=== PATIENT | male | born 1995 | race African-American/Black ===

== ENCOUNTER 2016-09-27 21:04 | Emergency (ER) | payer BC, OTHER ==
[2016-09-27 21:12] VITALS: BP 133/67
--- NOTE | 2016-09-27 21:26 | PHYS DOC ---
Past Medical History Past Medical History: No Pertinent History Past Surgical History: Other Additional Past Surgical Histo: left wrist surgery Alcohol Use: None Drug Use: None Adult General Chief Complaint Chief Complaint: COUGH HPI HPI Patient is a 21 year old who presents emergency department stating that he feels like he has generalized body aches and discomfort with a fever as well as cough and congestion. He states that the signs and symptoms started last night. He has not taken anything for the symptoms. He does state that he's been having sick contact at work and at home. He denies having the influenza vaccination this year. Review of Systems Review of Systems Constitutional: fever Eyes: Denies change in visual acuity, redness, or eye pain [] HENT: nasal congestion denies sore throat [] Respiratory: cough occasional shortness of breath [] Cardiovascular: No additional information not addressed in HPI [] GI: Denies abdominal pain, nausea, vomiting, bloody stools or diarrhea [] : Denies dysuria or hematuria [] Musculoskeletal: Denies back pain or joint pain [] Integument: Denies rash or skin lesions [] Neurologic: Denies headache, focal weakness or sensory changes [] Current Medications Current Medications Current Medications Medications (Trade) Dose Ordered Sig/Naima Start Time Stop Time Status Last Admin Dose Admin Ibuprofen (Motrin) 800 mg 1X ONCE 09/27/16 21:30 09/27/16 21:31 DC 09/27/16 21:39 800 MG Allergies Allergies Allergies Coded Allergies Type Severity Reaction Last Updated Verified No Known Drug Allergies 06/29/15 No Physical Exam Physical Exam Constitutional: Well developed, well nourished, no acute distress, non-toxic appearance. [] HENT: Normocephalic, atraumatic, bilateral external ears normal, oropharynx moist, no oral exudates, nose normal. Bilateral tympanic membranes appear to be normal. Throat with erythematous no exudate noted. Eyes: PERRLA, EOMI, conjunctiva normal, no discharge. [] Neck: Normal range of motion, no tenderness, supple, no stridor. [] Cardiovascular:Heart rate regular rhythm, no murmur [] Lungs & Thorax: Bilateral breath sounds clear to auscultation [] Skin: Warm, dry, no erythema, no rash. [] Back: No tenderness Extremities: No tenderness, no cyanosis, no clubbing, ROM intact, no edema. [] Neurologic: Alert and oriented X 3, normal motor function, normal sensory function, no focal deficits noted. [] Psychologic: Affect normal, judgement normal, mood normal. [] Current Patient Data Vital Signs Vital Signs Date Time Temp Pulse Resp B/P Pulse Ox O2 Delivery O2 Flow Rate FiO2 09/27/16 22:05 99.0 99.0 09/27/16 21:12 86 22 96 Room Air Lab Values Laboratory Tests Test 09/27/16 21:20 Influenza Type A Antigen Positive (NEGATIVE) Influenza Type B Antigen Negative (NEGATIVE) EKG EKG [] Radiology/Procedures Radiology/Procedures [] Course & Med Decision Making Course & Med Decision Making Pertinent Labs and Imaging studies reviewed. (See chart for details) She was provided with ibuprofen here in the emergency department. Temperature has decreased. Patient's influenza A positive. He'll be provided with Tamiflu and discharged home with recommendations for plenty of fluids such as water and Gatorade or propel. Patient will also be encouraged to use Tylenol and ibuprofen. Signs symptoms to return back to emergency department as been provided. Patient be discharged home in stable condition. [] Dragon Disclaimer Dragon Disclaimer This electronic medical record was generated, in whole or in part, using a voice recognition dictation system. Departure Departure Impression: Primary Impression: Influenza A Disposition: 01 HOME, SELF-CARE Condition: STABLE Referrals: Bhavna ARITA MD (PCP) Patient Instructions: Influenza, Adult, [id number] Additional Instructions: Home to rest. Medications as prescribed. Tylenol and ibuprofen for fever chills or generalized body aches and discomfort. Drink plenty of fluids such as water or Gatorade or propel. Follow-up through primary care physician in the next 7-10 days. Return back to emergency department sign symptoms of become worse. Scripts Oseltamivir Phosphate (Tamiflu)75 Mg Capsule1 Cap PO BID #10 CAP Prov:JASMIN SMITH NP 09/27/16 JASMIN SMITH NP Sep 27, 2016 21:26
[2016-09-27] MEDS ORDERED: IBUPROFEN 800 MG TABLET. PO ONE (21:30)
[2016-09-27 21:51] LABS: OBC FLU VALID
[2016-09-27] MEDS ORDERED: OSEL75CA PO (22:09)
== END 2016-09-27 22:14 | disposition home or self-care (01) ==
LOC: ER 21:04
DX: J09.X2 Influenza due to identified novel influenza A virus with other respiratory manifestations (principal); M79.1 Myalgia
CPT/HCPCS: 87804; 99284

== ENCOUNTER 2018-05-26 16:51 | Emergency (ER) | payer BC ==
[~2018-05-26] VITALS: Ht 188 cm; Wt 133.8 kg
[~2018-05-26 16:51] MED LIST: OSEL75CA PO
[2018-05-26 16:55] VITALS: BP 153/91
[2018-05-26] MEDS ORDERED: IBUPROFEN 600 MG TABLET. PO ONE (17:30)
--- NOTE | 2018-05-26 18:04 | RAD ---
Indication:PT STATES BODY ACHES ALL OVER SINCE THIS MORNING. DENIES CP, COUGH TECHNIQUE:PA and lateral views of the chest COMPARISON: None FINDINGS: Heart is normal in size. There is mild prominence of bronchial markings. Without focal consolidation. No pneumothorax or pleural effusion. Visualized bony thorax is within normal limits. IMPRESSION: Findings suggests mild bronchitis in right clinical setting. Electronically signed by: Jasmeet Arambula DO (05/26/2018 6:01 PM) [facility]
[2018-05-26 18:07] LABS: INFLUENZA A PATIENT NEGATIVE (NEGATIVE); INFLUENZA B PATIENT NEGATIVE (NEGATIVE)
--- NOTE | 2018-05-26 18:59 | PHYS DOC ---
Past Medical History Past Medical History: No Pertinent History Past Surgical History: Other Additional Past Surgical Histo: BILAT wrist/L PINKIE FINGER Alcohol Use: None Drug Use: None Adult General Chief Complaint Chief Complaint: FEVER HPI HPI Patient is a 23 year old male who presents with fever and symptoms today of chest tightness, cough but no production. She states his temp was 100.5. Patient states he took Tylenol at 9:00's morning. Review of Systems Review of Systems Constitutional: Fever or chills [] Eyes: Denies change in visual acuity, redness, or eye pain [] HENT: Denies nasal congestion or sore throat [] Respiratory: Cough. Denies shortness of breath [] Cardiovascular: No additional information not addressed in HPI [] GI: Denies abdominal pain, nausea, vomiting, bloody stools or diarrhea [] : Denies dysuria or hematuria [] Musculoskeletal: Denies back pain or joint pain [] Integument: Denies rash or skin lesions [] Neurologic: Denies headache, focal weakness or sensory changes [] Endocrine: Denies polyuria or polydipsia [] All other systems were reviewed and found to be within normal limits, except as documented in this note. Current Medications Current Medications Current Medications Medications (Trade) Dose Ordered Sig/Naima Start Time Stop Time Status Last Admin Dose Admin Ibuprofen (Motrin) 600 mg 1X ONCE 05/26/18 17:30 05/26/18 17:31 DC 05/26/18 18:30 600 MG Allergies Allergies Allergies Coded Allergies Type Severity Reaction Last Updated Verified No Known Drug Allergies 06/29/15 No Physical Exam Physical Exam Constitutional: Well developed, well nourished, no acute distress, non-toxic appearance. [] HENT: Normocephalic, atraumatic, bilateral external ears normal, oropharynx moist, no oral exudates, nose normal. [] Eyes: PERRLA, EOMI, conjunctiva normal, no discharge. [] Neck: Normal range of motion, no tenderness, supple, no stridor. [] Cardiovascular:Heart rate regular rhythm, no murmur [] Lungs & Thorax: Bilateral upper breath sounds clear to auscultation but lower lobes are diminished. [] Abdomen: Bowel sounds normal, soft, no tenderness, no masses, no pulsatile masses. [] Skin: Warm, dry, no erythema, no rash. [] Back: No tenderness, no CVA tenderness. [] Extremities: No tenderness, no cyanosis, no clubbing, ROM intact, no edema. [] Neurologic: Alert and oriented X 3, normal motor function, normal sensory function, no focal deficits noted. [] Psychologic: Affect normal, judgement normal, mood normal. [] Current Patient Data Vital Signs Vital Signs Date Time Temp Pulse Resp B/P (MAP) Pulse Ox O2 Delivery O2 Flow Rate FiO2 05/26/18 19:10 99.1 99.1 05/26/18 16:55 87 20 153/91 (111) 96 Room Air Lab Values Laboratory Tests Test 05/26/18 17:26 Influenza Type A Antigen Negative (NEGATIVE) Influenza Type B Antigen Negative (NEGATIVE) Group A Streptococcus Rapid Negative (NEGATIVE) EKG EKG [] Radiology/Procedures Radiology/Procedures Chest xray Impressions: [facility] [address] [place], [place] [id number] IMAGING REPORT Signed PATIENT: SANDIE VALDOVINOS ACCOUNT: [id number] : 1995 LOCATION: ER AGE: 23 SEX: M EXAM STATUS: REG ER ORD. PHYSICIAN: JASMIN MOON APRN REASON: fever PROCEDURE: CHEST PA & LATERAL Indication:PT STATES BODY ACHES ALL OVER SINCE THIS MORNING. DENIES CP, COUGH TECHNIQUE:PA and lateral views of the chest COMPARISON: None FINDINGS: Heart is normal in size. There is mild prominence of bronchial markings. Without focal consolidation. No pneumothorax or pleural effusion. Visualized bony thorax is within normal limits. IMPRESSION: Findings suggests mild bronchitis in right clinical setting. Electronically signed by: Jasmeet Gutierrez DO (05/26/2018 6:01 PM) [facility] DICTATED and SIGNED BY: JASMEET GUTIERREZ DO DATE: 05/26/18 1800 Course & Med Decision Making Course & Med Decision Making Patient is a 23 year old male who presents with fever and symptoms today of chest tightness, cough but no production. She states his temp was 100.5. Patient states he took Tylenol at 9:00's morning. Heart rate regular and without murmur. His lungs are diminished in bases but upper lobes are clear. No wheezing is heard in his lungs bilaterally in all lobes. Bilateral and panic membranes are early white. Throat is pink without exudates. Patient denies any throat pain, ear pain, dysuria, shortness of air, chest pain. Patient denies any headache or dizziness. Patient denies any nausea vomiting or diarrhea. History of a wrist surgery and takes no medications daily. Patient states he takes has no known drug use. Is pink warm and dry. Patient is alert and oriented. Abdomen is soft and nontender. He has no edema in any extremity. Patient is given a dose of ibuprofen in the ED. Patient's chest x-ray shows mild bronchitis. Patient is sent home to take prednisone for 5 days. And to follow-up with his primary care as soon as possible. Or patient can come back to the ED if he is not getting any better. [] Dragon Disclaimer Dragon Disclaimer This electronic medical record was generated, in whole or in part, using a voice recognition dictation system. Departure Departure Impression: Primary Impression: Bronchitis Disposition: 01 HOME, SELF-CARE Condition: STABLE Referrals: NO PCP (PCP) Patient Instructions: Bronchitis Additional Instructions: Follow up with your primary care. Scripts Prednisone (PREDNISONE) 50 Mg Tablet 1 TAB PO DAILY, #5 TAB Prov: JASMIN MOON APRN 05/26/18 JASMIN MOON APRN May 26, 2018 18:58
[2018-05-26] MEDS ORDERED: PRED50TA PO (19:02)
[2018-05-27] MEDS ORDERED: AZIT1PAC9 PO (18:53)
[2018-05-27] MEDS ORDERED: AZIT250T PO (18:57)
== END 2018-05-26 19:10 | disposition home or self-care (01) ==
LOC: ER 16:51
DX: J40 Bronchitis, not specified as acute or chronic (principal)
CPT/HCPCS: 71046; 87070; 87804; 87880; 99285

== ENCOUNTER 2018-05-27 18:19 | Emergency (ER) | payer BC ==
[~2018-05-27] VITALS: Ht 188 cm; Wt 133.8 kg
[~2018-05-27 18:19] MED LIST changes: +PRED50TA PO
[2018-05-27 18:37] VITALS: BP 154/74
[2018-05-27] MEDS ORDERED: AZIT1PAC9 PO (18:53)
--- NOTE | 2018-05-27 18:54 | PHYS DOC ---
Past Medical History Past Medical History: No Pertinent History Past Surgical History: Other Additional Past Surgical Histo: BILAT wrist/L PINKIE FINGER Alcohol Use: None Drug Use: None Adult General Chief Complaint Chief Complaint: OTHER COMPLAINTS HPI HPI 23-year-old male presents to ER with complaints he is not feeling any better after being seen in the ER yesterday and diagnosed with bronchitis. Pt reports he has taken the prescribed prednisone he was given yest. Pt reports he took tylenol 1gm at 1 p.m. denying any other OTC meds. Patient reports he has felt fatigued denying any focal neuro deficits. He reports he has had decreased appetite today and less fld intake. Pt reports he has been urinating without sxs. Pt reports he has had chills uncertain if he's had fever- hasn't check his temp. He denies productive cough, CP, or palpitations. Patient reports he occasionally smokes cigarettes denying any recent use. Review of Systems Review of Systems Constitutional: Reports chills uncertain of fever as he hasn't checked his temperature Eyes: Denies change in visual acuity, redness, or eye pain [] HENT: Denies nasal congestion or sore throat [] Respiratory: reports occasional nonproductive cough denying shortness of air] Cardiovascular: Denies chest pain or palpitations GI: Denies abdominal pain, nausea, vomiting, bloody stools or diarrhea [] : Denies dysuria or hematuria [] Musculoskeletal: Denies back/neck pain or joint pain [] Integument: Denies rash, swelling or skin lesions [] Neurologic: Denies headache, focal weakness or sensory changes. Denies dizziness or lightheadedness All other systems were reviewed and found to be within normal limits, except as documented in this note. Current Medications Current Medications Current Medications Medications (Trade) Dose Ordered Sig/Naima Start Time Stop Time Status Last Admin Dose Admin Ibuprofen (Motrin) 600 mg 1X ONCE 05/27/18 19:15 05/27/18 19:15 DC 05/27/18 19:06 600 MG Allergies Allergies Allergies Coded Allergies Type Severity Reaction Last Updated Verified No Known Drug Allergies 06/29/15 No Physical Exam Physical Exam Constitutional: Well developed, well nourished, no acute distress, non-toxic appearance. Clear speech HENT: Normocephalic, atraumatic, bilateral ears normal, mucous membranes pink/ dry, no oral exudates, nose normal. [] Eyes: pupils equal, no nystagmus, conjunctiva normal, no discharge. [] Neck: Normal range of motion, no tenderness, supple, no gross adenopathy Cardiovascular:Heart rate regular rhythm, no murmur [] Lungs & Thorax: Bilateral breath sounds clear to auscultation. Respirations equal and nonlabored Abdomen: Bowel sounds normal, soft, no tenderness Skin: Warm, dry, no erythema, no rash. [] Back: No tenderness, no CVA tenderness. [] Extremities: No tenderness, no cyanosis, no clubbing, ROM intact, no edema. [] Neurologic: Alert and oriented X 3, normal motor function, normal sensory function, no focal deficits noted. [] Psychologic: Affect normal, judgement normal, mood normal. [] Current Patient Data Vital Signs Vital Signs Date Time Temp Pulse Resp B/P (MAP) Pulse Ox O2 Delivery O2 Flow Rate FiO2 05/27/18 18:37 100.9 91 24 154/74 (100) 90 Room Air 100.9 EKG EKG [] Radiology/Procedures Radiology/Procedures [] Course & Med Decision Making Course & Med Decision Making Patient had chest x-ray yesterday which showed mild bronchitis so no repeat imaging done today. Patient had temp. 100.9 so dose of Ibuprofen was given while in ER. Patient had equal nonlabored respirations with good air movement throughout all lung causey. Discussed plans for patient to finish prednisone prescription as previously prescribed and Z-Willam would be provided during this ER visit. Education provided on signs and symptoms to return to ER for. Is advised on increasing fluid intake, [id number] Tylenol and/or ibuprofen as directed on container for fever and pain, and well-balanced meals. Discharge instructions were discussed and community clinic and physician information will be provided with discharge paperwork for follow-up purposes. Dragon Disclaimer Dragon Disclaimer This electronic medical record was generated, in whole or in part, using a voice recognition dictation system. Departure Departure Impression: Primary Impression: Bronchitis Disposition: 01 HOME, SELF-CARE Condition: STABLE Referrals: NO PCP (PCP) Patient Instructions: Bronchitis Additional Instructions: Continue your prednisone prescription as prescribed yesterday. Drink plenty of fluids and eat a well-balanced meal. Tylenol and/or ibuprofen as directed on container for fever and pain control. Scripts Azithromycin (ZITHROMAX) 250 Mg Tablet 1 PKG PO UD, #6 TAB 0 Refills Prov: CHERYL CLAUDIO APRN 05/27/18 CHERYL CLAUDIO APRN May 27, 2018 18:54
[2018-05-27] MEDS ORDERED: AZIT250T PO (18:57)
[2018-05-27] MEDS ORDERED: IBUPROFEN 600 MG TABLET. PO ONE (19:15)
== END 2018-05-27 19:11 | disposition home or self-care (01) ==
LOC: ER 18:19
DX: J40 Bronchitis, not specified as acute or chronic (principal); R53.83 Other fatigue; F17.210 Nicotine dependence, cigarettes, uncomplicated
CPT/HCPCS: 99283